=== PATIENT | female | born 1950 | race Two or more races ===

== ENCOUNTER 2017-04-27 09:18 | Day surgery (SDC) | payer OTHER ==
[2017-04-27] MEDS ORDERED: LIDOCAINE 4% SOLUTION 50 ML BTL (10:29)
[2017-04-27] MEDS ORDERED: FENTAnyl 50 MCG/ML VIAL (11:09)
[2017-04-27] MEDS ORDERED: MIDAZOLAM 1 MG/ML 2 ML INJ ×2 (11:09)
== END 2017-04-27 12:44 | disposition home or self-care (01) ==
LOC: GIL 09:18
DX: K64.8 Other hemorrhoids (principal); K64.4 Residual hemorrhoidal skin tags; K29.50 Unspecified chronic gastritis without bleeding; K20.9 Esophagitis, unspecified
CPT/HCPCS: 43239; 88305; 88312